=== PATIENT | female | born 2000 | race Caucasian/White ===

== ENCOUNTER 2020-12-12 14:38 | Emergency (ER) | payer OTHER ==
[~2020-12-12] VITALS: Ht 154.9 cm; Wt 54.4 kg
[2020-12-12 15:06] VITALS: BP 95/65
--- NOTE | 2020-12-12 16:05 | NUR ---
ASSUMED CARE AT THIS TIME. REPORT VIA TRIAGE AND PATIENT. BEDSIDE ULTRASOUND IN PROGRESS
--- NOTE | 2020-12-12 16:05 | NUR ---
C/O VAGINAL BLEEDING X TODAY. LMP 10/10/20. DENIES PAIN FEARFUL, REASSURED. BED IN LOW LOCKED POSITON.
[2020-12-12 16:24] LABS: BASOPHILS # (AUTO) 0.1 K/uL (0.00-0.22); BASOPHILS % (AUTO) 0.4 % (0.0-2.0); EOSINOPHILS # (AUTO) 0.1 K/uL (0-0.4); EOSINOPHILS % (AUTO) 0.4 % (0.0-4.0); HEMOGLOBIN 10.7 g/dL (12.0-16.0); LYMPHOCYTES # (AUTO) 1.8 K/uL (2.5-16.5); LYMPHOCYTES % (AUTO) 15.6 % (20.5-51.1); MEAN CORPUSCULAR HEMOGLOBIN 24 pg (27-31); MEAN CORPUSCULAR HGB CONC 32 g/dL (33-37); MEAN CORPUSCULAR VOLUME 74.7 fL (80-94); MONOCYTES # (AUTO) 0.7 K/uL (0.8-1.0); MONOCYTES % (AUTO) 6.2 % (1.7-9.3); NEUTROPHILS # (AUTO) 8.8 K/uL (1.8-7.7); NEUTROPHILS % (AUTO) 77.4 % (42.2-75.2); PLATELET COUNT (AUTO) 264 K/uL (140-450); RED BLOOD CELL COUNT(AUTO) 4.55 MIL/uL (4.20-5.40); RED CELL DISTRIBUTION WIDTH 18.1 % (11.6-13.7); WHITE BLOOD COUNT (AUTO) 11.4 K/uL (4.8-10.8)
[2020-12-12 16:35] LABS: APPEARANCE,URINE CLOUDY (CLEAR); BILIRUBIN,URINE NEGATIVE (NEGATIVE); BLOOD, URINE 3+ (NEGATIVE); COLOR,URINE YELLOW (YELLOW); LEUKOCYTE ESTERASE ,URINE 1+ (NEGATIVE); NITRITE, URINE NEGATIVE (NEGATIVE); UGLUCOSE NEGATIVE (NEGATIVE)
--- NOTE | 2020-12-12 16:56 | NUR ---
RESTING QUIETLY AWAITING RESULTS AND PLAN OF CARE. S/O AT BEDSIDE.
[2020-12-12] MEDS ORDERED: NITR100C7 PO (17:20)
--- NOTE | 2020-12-12 17:24 | NUR ---
DR. NAIK AT BEDSIDE DISCUSSING RESULTS. PLAN OF CARE IS TO DISCHARGE AND FOLLOW UP WITH OB.
[2020-12-12 17:34] VITALS: BP 95/65
== END 2020-12-12 17:34 | disposition home or self-care (01) ==
LOC: MED 14:38
DX: O20.0 Threatened abortion (principal); O23.41 Unspecified infection of urinary tract in pregnancy, first trimester; Z3A.08 8 weeks gestation of pregnancy; Z79.899 Other long term (current) drug therapy
CPT/HCPCS: 36415; 76801; 81001; 81025; 84702; 85025; 86900; 86901; 87086; 99284

== ENCOUNTER 2020-12-26 13:22 | Emergency (ER) | payer OTHER ==
[~2020-12-26] VITALS: Ht 154.9 cm; Wt 54.4 kg
[~2020-12-26 13:22] MED LIST: NITR100C7 PO
[2020-12-26 13:33] VITALS: BP 101/51
[2020-12-26 14:15] LABS: BASOPHILS % (AUTO) 0.4 % (0.0-2.0); EOSINOPHILS # (AUTO) 0.1 K/uL (0-0.4); EOSINOPHILS % (AUTO) 0.5 % (0.0-4.0); HEMATOCRIT 33.2 % (36-48); HEMOGLOBIN 10.8 g/dL (12.0-16.0); LYMPHOCYTES # (AUTO) 2.3 K/uL (2.5-16.5); LYMPHOCYTES % (AUTO) 22.1 % (20.5-51.1); MEAN CORPUSCULAR HEMOGLOBIN 24 pg (27-31); MEAN CORPUSCULAR HGB CONC 33 g/dL (33-37); MONOCYTES # (AUTO) 0.6 K/uL (0.8-1.0); MONOCYTES % (AUTO) 5.9 % (1.7-9.3); NEUTROPHILS # (AUTO) 7.5 K/uL (1.8-7.7); NEUTROPHILS % (AUTO) 71.1 % (42.2-75.2); PLATELET COUNT (AUTO) 288 K/uL (140-450); RED BLOOD CELL COUNT(AUTO) 4.42 MIL/uL (4.20-5.40); RED CELL DISTRIBUTION WIDTH 18.4 % (11.6-13.7); WHITE BLOOD COUNT (AUTO) 10.6 K/uL (4.8-10.8)
[2020-12-26] MEDS ORDERED: ONDA8TAB87 PO (16:01)
--- NOTE | 2020-12-26 16:24 | NUR ---
Patient discharged with v/s stable. Written and verbal after care instructions given and explained. Patient alert, oriented and verbalized understanding of instructions. Ambulatory with steady gait. All questions addressed prior to discharge. ID band removed. Patient advised to follow up with PMD. Copy of US on a disc given. Rx of ZOFRAN given. Patient educated on indication of medication including possible reaction and side effects. Opportunity to ask questions provided and answered.
== END 2020-12-26 16:24 | disposition home or self-care (01) ==
LOC: MED 13:22
DX: O20.0 Threatened abortion (principal); Z3A.10 10 weeks gestation of pregnancy
CPT/HCPCS: 36415; 76801; 84702; 85025; 86900; 86901; 99284

== ENCOUNTER 2021-01-23 15:57 | Emergency (ER) | payer OTHER ==
[~2021-01-23 15:57] MED LIST changes: +ONDA8TAB87 PO
--- NOTE | 2021-01-23 16:15 | NUR ---
CALLED FOR TRIAGE, NO RESPONSE.
--- NOTE | 2021-01-23 16:20 | NUR ---
CALLED FOR TRIAGE, NO RESPONSE.
--- NOTE | 2021-01-23 16:25 | NUR ---
CALLED FOR TRIAGE, NO RESPONSE.
--- NOTE | 2021-01-23 16:30 | NUR ---
PATIENT LEFT WITHOUT BEING SEEN BY DR. díaz. NO FURTHER CARE PROVIDED FOR PATIENT.
== END 2021-01-23 16:26 | disposition left against medical advice (07) ==
LOC: MED 15:57
DX: F41.9 Anxiety disorder, unspecified (principal); Z53.21 Procedure and treatment not carried out due to patient leaving prior to being seen by health care provider